=== PATIENT | male | born 1990 | race Caucasian/White ===

== ENCOUNTER 2016-08-30 16:27 | Emergency (ER) | payer MEDICAID, OTHER ==
[2016-08-30 17:05] VITALS: BP 126/72
--- NOTE | 2016-08-30 17:17 | UC ---
Throat Pain/Nasal Hermilo HPI - HPI Summary HPI Summary: complain to sore throat that started 3 days ago nasal congestion for approx 2 days today throat is extremely sore denies fever and chills and cough gargling with salt water without relief not taking any medications for pain 1 episode of diarrhea this morning - denies abdominal pain, N/V/D at this time - History of Current Complaint Chief Complaint: UCGeneralIllness Stated Complaint: SORE THROAT/WHITE SPOTS Time Seen by Provider: 08/30/16 17:07 Hx Obtained From: Patient - Allergies/Home Medications Allergies/Adverse Reactions: Allergies Allergy/AdvReac Type Severity Reaction Status Date / Time No Known Allergies Allergy Verified 11/29/13 13:08 PMH/Surg Hx/FS Hx/Imm Hx Previously Healthy: Yes Endocrine History Of: Denies: Diabetes, Thyroid Disease Cardiovascular History Of: Denies: Cardiac Disorders, Hypertension, Pacemaker/ICD Respiratory History Of: Denies: COPD, Asthma GI/ History Of: Denies: Ulcer - Surgical History Surgical History: Yes Surgery Procedure, Year, and Place: 2010 RIGHT KNEE RECONSTRUCTION [place]; Left knee reconstruction October 2013 - Family History Known Family History: Negative: Cardiac Disease, Hypertension, Diabetes - Social History Occupation: Employed Full-time Lives: With Family Alcohol Use: Occasionally Alcohol Amount: 4 SIX PACKS/WEEK Substance Use Type: None Smoking Status (MU): Never Smoked Tobacco Type: Smokeless Tobacco Amount Used/How Often: NO SMOKING, CHEWS Have You Smoked in the Last Year: No Review of Systems Constitutional: Negative Skin: Negative Eyes: Negative ENT: Sore Throat, Nasal Discharge Respiratory: Negative Cardiovascular: Negative Gastrointestinal: Diarrhea Motor: Negative Neurovascular: Negative Musculoskeletal: Negative Neurological: Negative Psychological: Negative All Other Systems Reviewed And Are Negative: Yes Physical Exam Triage Information Reviewed: Yes Appearance: No Pain Distress, Well-Nourished, Ill-Appearing, Obese Vital Signs: Initial Vital Signs Temp 99.0 F 08/30/16 16:58 Pulse 93 08/30/16 16:58 Resp 16 08/30/16 16:58 BP 126/72 08/30/16 16:58 Pulse Ox 100 08/30/16 16:58 Vital Signs Reviewed: Yes Eyes: Positive: Conjunctiva Clear ENT: Positive: Nasal congestion, TMs normal, Tonsillar swelling, Tonsillar exudate. Negative: TM bulging, TM red Neck: Positive: No Lymphadenopathy Respiratory: Positive: Lungs clear, Normal breath sounds, No respiratory distress Cardiovascular: Positive: RRR, No Murmur, Pulses Normal Abdomen Description: Positive: Nontender, Soft Bowel Sounds: Positive: Present Musculoskeletal: Positive: No Edema Neurological: Positive: Alert Psychological Exam: Normal Skin Exam: Normal Throat Pain/Nasal Course/Dx - Differential Dx/Diagnosis Differential Diagnosis/HQI/PQRI: Mononucleosis, Pharyngitis, Tonsillitis Provider Diagnoses: strep throat Discharge - Discharge Plan Condition: Stable Disposition: HOME Prescriptions: Penicillin VK TAB* [Penicillin Vk Tab*] 500 mg PO BID #20 tab Patient Education Materials: Tonsillitis (ED), Strep Throat (ED) Referrals: No Primary Care Phys,NOPCP [Primary Care Provider] - [facility] [place] PHYSICIAN REFERRAL [Outside] Additional Instructions: STREPTOCOCCAL PHARYNGITIS (Strep Throat) What is Strep Throat? Strep throat is an infection of the throat and/or tonsils caused by Streptococcus bacteria. Strep throat is contagious and can be passed from one person to another through coughing and sneezing. Infections that are caused by bacteria require antibiotics to be cured. You remain contagious until you have taken antibiotics for at least 24 hours. Symptoms Might Include: Pain in the throat area Swelling of the glands in the neck Pain with swallowing Fever Fatigue Ear pain White spots on your tonsils (caused by pus) Treatment Recommendations: An antibiotic may have been prescribed. The antibiotic should be taken until it is completely gone, even if you feel better. If you stop the antibiotic early , you may not cure the infection completely. Gargle with warm saltwater (place 1 tsp. of salt in a large glass of warm water ) every 3 to 4 hours. Take acetaminophen (Tylenol, Tempra) for pain and fever. Drink lots of fluids. Do not smoke. Use throat lozenges (Cepostat, [place], etc.) or suck on hard candy for temporary relief of the pain of swallowing. Dispose of used tissues immediately. Cover your mouth when coughing or sneezing. Wash hands frequently. Call Your Doctor or Return Here IF: Your symptoms do not improve within 2 days or you become worse. You have a fever over 101.0 F orally. You are unable to swallow liquids or saliva. You are drooling. You develop trouble breathing. You develop a rash. You develop a stiff neck. You develop pain in your chest. You develop any symptoms that are new or that concern you
[2016-08-30] MEDS ORDERED: Ibuprofen TAB* 400 MG PO ONE (17:24)
== END 2016-08-30 17:40 | disposition home or self-care (01) ==
LOC: UCCORT 16:27
DX: J02.0 Streptococcal pharyngitis (principal)
CPT/HCPCS: 87651; 99212; A9270-GY; G0463

== ENCOUNTER 2016-09-01 08:53 | Emergency (ER) | payer MEDICAID, OTHER ==
--- NOTE | 2016-09-01 09:26 | RAD ---
HISTORY: Hemoptysis COMPARISONS: None VIEWS: 2: Frontal dual-energy and lateral views of the chest. The right costophrenic angle is partially cut off. FINDINGS: CARDIOMEDIASTINAL SILHOUETTE: The cardiomediastinal silhouette is normal. MONIE: The monie are normal. PLEURA: The costophrenic angles are sharp. No pleural abnormalities are noted. LUNG PARENCHYMA: The lungs are clear. ABDOMEN: The upper abdomen is clear. There is no subphrenic gas. BONES AND SOFT TISSUES: No bone or soft tissue abnormalities are noted. OTHER: None. IMPRESSION: NO ACTIVE CARDIOPULMONARY DISEASE.
[2016-09-01 09:37] VITALS: BP 124/73
--- NOTE | 2016-09-01 09:55 | UC ---
Respiratory Complaint HPI - HPI Summary HPI Summary: coughing up clotted blood. Occurred 3 times. On PCN for strep throat for 2d, was told his throat looked "horrible" 2d ago when diagnosis was made. Mild cough. No fever. Non-smoker. Feels much better since starting the antibiotic - History of Current Complaint Chief Complaint: UCRespiratory Stated Complaint: COUGHING UP BLOOD Time Seen by Provider: 09/01/16 09:15 Hx Obtained From: Patient Onset/Duration: Gradual Onset, Lasting Days - 4 Timing: Constant Severity Initially: Moderate Severity Currently: Mild Character: Sputum Description: - blood-streaked, coughed up clots 3 times Associated Signs And Symptoms: Positive: URI, Nasal Congestion, Hoarseness. Negative: Fever, Chills, Wheezing - Risk Factors Pulmonary Embolism Risk Factors: Negative Cardiac Risk Factors: Negative Pseudomonas Risk Factors: Negative Tuberculosis Risk Factors: Negative - Allergies/Home Medications Allergies/Adverse Reactions: Allergies Allergy/AdvReac Type Severity Reaction Status Date / Time No Known Allergies Allergy Verified 09/01/16 09:07 PMH/Surg Hx/FS Hx/Imm Hx Previously Healthy: Yes Endocrine History Of: Denies: Diabetes, Thyroid Disease Cardiovascular History Of: Denies: Cardiac Disorders, Hypertension, Pacemaker/ICD Respiratory History Of: Denies: COPD, Asthma GI/ History Of: Denies: Ulcer - Surgical History Surgical History: Yes Surgery Procedure, Year, and Place: 2010 RIGHT KNEE RECONSTRUCTION [place]; Left knee reconstruction October 2013 - Family History Known Family History: Negative: Cardiac Disease, Hypertension, Diabetes - Social History Occupation: Employed Full-time - lumber Lives: With Family Alcohol Use: Occasionally Alcohol Amount: 4 SIX PACKS/WEEK Substance Use Type: None Smoking Status (MU): Smoker, Current Status Unknown Type: Smokeless Tobacco Amount Used/How Often: 1 can weekly Have You Smoked in the Last Year: No Review of Systems Constitutional: Negative Skin: Negative Eyes: Negative ENT: Sore Throat Respiratory: Cough Cardiovascular: Negative Gastrointestinal: Negative Genitourinary: Negative Motor: Negative Neurovascular: Negative Musculoskeletal: Negative Neurological: Negative Psychological: Negative All Other Systems Reviewed And Are Negative: Yes Physical Exam Triage Information Reviewed: Yes Appearance: Well-Appearing, No Pain Distress, Well-Nourished Vital Signs: Initial Vital Signs Temp 97.9 F 09/01/16 09:08 Pulse 83 09/01/16 09:08 Resp 16 01/09/17 09:08 BP 124/73 09/01/16 09:08 Pulse Ox 100 09/01/16 09:08 Vital Signs Reviewed: Yes Eye Exam: Normal ENT: Positive: Hearing grossly normal, Pharyngeal erythema, TMs normal, Tonsillar swelling, Tonsillar exudate. Negative: Nasal congestion, Nasal drainage, Trismus, Muffled/hoarse voice Neck exam: Normal Respiratory Exam: Normal Respiratory: Positive: Lungs clear, Normal breath sounds Cardiovascular Exam: Normal Musculoskeletal Exam: Normal Neurological Exam: Normal Psychological Exam: Normal Skin Exam: Normal UC Diagnostic Evaluation - Laboratory O2 Sat by Pulse Oximetry: 100 Respiratory Course/Dx - Differential Dx/Diagnosis Differential Diagnosis/HQI/PQRI: Bronchitis, Lower Resp Infection Provider Diagnoses: pharyngitis Discharge - Discharge Plan Condition: Stable Disposition: HOME Patient Education Materials: Pharyngitis (ED) Forms: *Work Release Referrals: No Primary Care Phys,NOPCP [Primary Care Provider] - Additional Instructions: The blood you are coughing up is coming from your infected tonsils and not from your lung.
== END 2016-09-01 10:11 | disposition home or self-care (01) ==
LOC: UCCORT 08:53
DX: J02.9 Acute pharyngitis, unspecified (principal)
CPT/HCPCS: 71020; 99211; G0463

== ENCOUNTER 2017-07-15 10:07 | Emergency (ER) | payer OTHER ==
[2017-07-15 10:39] VITALS: BP 126/74
--- NOTE | 2017-07-15 11:11 | UC ---
Throat Pain/Nasal Hermilo HPI - HPI Summary HPI Summary: Congestion for about 6 days. Not improving. NO fever or chills. Mild cough. - History of Current Complaint Chief Complaint: UCRespiratory Stated Complaint: SINUS COMPLAINT Time Seen by Provider: 07/15/17 10:59 Hx Obtained From: Patient Onset/Duration: Gradual Onset, Lasting Days Severity: Moderate Cough: Nonproductive Associated Signs & Symptoms: Positive: Sinus Discomfort, Nasal Discharge. Negative: Wheezing, Hoarseness, Fever, Vomiting, Rash - Allergies/Home Medications Allergies/Adverse Reactions: Allergies Allergy/AdvReac Type Severity Reaction Status Date / Time No Known Allergies Allergy Verified 07/15/17 10:32 PMH/Surg Hx/FS Hx/Imm Hx Previously Healthy: Yes - Surgical History Surgical History: Yes Surgery Procedure, Year, and Place: 2010 RIGHT KNEE RECONSTRUCTION [place]; Left knee reconstruction October 2013 - Family History Known Family History: Negative: Cardiac Disease, Hypertension, Diabetes - Social History Lives: With Family Alcohol Use: Occasionally Alcohol Amount: 4 SIX PACKS/WEEK Substance Use Type: None Smoking Status (MU): Former Smoker Type: Smokeless Tobacco Amount Used/How Often: NO SMOKING, CHEWS Have You Smoked in the Last Year: No When Did the Patient Quit Smoking/Using Tobacco: AGE 18 QUIT - Immunization History Most Recent Influenza Vaccination: DOES NOT TAKE Review of Systems ENT: Sinus Congestion All Other Systems Reviewed And Are Negative: Yes Physical Exam Triage Information Reviewed: Yes Appearance: Well-Appearing, No Pain Distress, Well-Nourished Vital Signs: Initial Vital Signs Temp 97.7 F 07/15/17 10:33 Pulse 74 07/15/17 10:33 Resp 18 07/15/17 10:33 BP 126/74 07/15/17 10:33 Pulse Ox 100 07/15/17 10:33 Vital Signs Reviewed: Yes ENT: Positive: Nasal congestion, TMs normal. Negative: Tonsillar swelling, Tonsillar exudate, Trismus, Muffled voice, Hoarse voice, Dental tenderness, Sinus tenderness, Uvula midline Neck: Positive: Supple, Nontender, No Lymphadenopathy Respiratory: Positive: Chest non-tender, Lungs clear, Normal breath sounds, No respiratory distress, No accessory muscle use. Negative: Respiratory distress, Decreased breath sounds, Accessory muscle use, Crackles, Rhonchi Cardiovascular: Positive: RRR, No Murmur, Pulses Normal, Brisk Capillary Refill Abdomen Description: Negative: Distended, Guarding Musculoskeletal: Positive: ROM Intact Neurological: Positive: Alert, Muscle Tone Normal, Fatigued Skin: Negative: rashes Throat Pain/Nasal Course/Dx - Course Assessment/Plan: decongestants described in detail. He will start that and then if not improved start amoxacillin on day 10. - Differential Dx/Diagnosis Provider Diagnoses: uri Discharge - Discharge Plan Condition: Good Disposition: HOME Prescriptions: Amoxicillin PO (*) [Amoxicillin 500 MG CAP*] 500 mg PO TID #30 cap Patient Education Materials: Upper Respiratory Infection (ED) Referrals: No Primary Care Phys,NOPCP [Primary Care Provider] - If Needed Additional Instructions: Try decongestants for next few days and then start the antibiotic if symptoms get worse or if you are not better by day 10.
== END 2017-07-15 11:12 | disposition home or self-care (01) ==
LOC: UCCORT 10:07
DX: J06.9 Acute upper respiratory infection, unspecified (principal)
CPT/HCPCS: 99212; G0463

== ENCOUNTER 2017-12-07 15:15 | Emergency (ER) | payer SELFPAY ==
[2017-12-07 15:25] VITALS: BP 144/78
--- NOTE | 2017-12-07 15:51 | UC ---
Laceration HPI - HPI Summary HPI Summary: While cutting rubber tubing at home, pt accidentally cut lateral aspect of L index finger with "new, very sharp knife." States he was cutting with firm pressure, using body weight. Last tdap 1 year ago, no immune suppression. Active bleeding. - History Of Current Complaint Chief Complaint: UCLaceration Stated Complaint: FINGER LACERATION Time Seen by Provider: 12/07/17 15:30 Hx Obtained From: Patient Laceration Location: Finger Mechanism Of Injury: Sharp Trauma Onset/Duration: Sudden Onset Severity: Moderate Pain Intensity: 5 Aggravating Factors: Nothing - Allergies/Home Medications Allergies/Adverse Reactions: Allergies Allergy/AdvReac Type Severity Reaction Status Date / Time No Known Allergies Allergy Verified 12/07/17 15:25 Home Medications: Home Medications NK [No Home Medications Reported] 12/07/17 [History Confirmed 12/07/17] PMH/Surg Hx/FS Hx/Imm Hx Previously Healthy: Yes - Surgical History Surgical History: Yes Surgery Procedure, Year, and Place: 2010 RIGHT KNEE RECONSTRUCTION [place]; Left knee reconstruction October 2013 - Family History Known Family History: Negative: Cardiac Disease, Hypertension, Diabetes - Social History Alcohol Use: Occasionally Alcohol Amount: 4 SIX PACKS/WEEK Substance Use Type: None Smoking Status (MU): Heavy Every Day Tobacco Smoker Type: Smokeless Tobacco Amount Used/How Often: NO SMOKING, CHEWS Have You Smoked in the Last Year: No When Did the Patient Quit Smoking/Using Tobacco: AGE 18 QUIT Cessation Counseling: Patient Advised to Stop - Immunization History Most Recent Influenza Vaccination: DOES NOT TAKE Most Recent Tetanus Shot: 2017 Review of Systems Constitutional: Negative Skin: Other - finger laceration Eyes: Negative ENT: Negative Respiratory: Negative Cardiovascular: Negative Gastrointestinal: Negative Genitourinary: Negative Motor: Negative Neurovascular: Negative Musculoskeletal: Negative Neurological: Negative Psychological: Negative Is Patient Immunocompromised?: No All Other Systems Reviewed And Are Negative: Yes Physical Exam Triage Information Reviewed: Yes Appearance: Well-Appearing, Well-Nourished Vital Signs: Initial Vital Signs Temp 98.1 F 12/07/17 15:22 Pulse 103 12/07/17 15:22 Resp 18 12/07/17 15:22 BP 144/78 12/07/17 15:22 Pulse Ox 98 12/07/17 15:22 Vital Signs Reviewed: Yes Eye Exam: Normal Eyes: Positive: Conjunctiva Clear ENT Exam: Normal ENT: Positive: Normal ENT inspection, Hearing grossly normal, Pharynx normal, TMs normal Neck exam: Normal Neck: Positive: Supple, Nontender, No Lymphadenopathy Respiratory Exam: Normal Respiratory: Positive: Chest non-tender, Lungs clear, Normal breath sounds, No respiratory distress, No accessory muscle use Cardiovascular Exam: Normal Cardiovascular: Positive: RRR, No Murmur Musculoskeletal Exam: Other - Full flexor and extensor strength and ROM in L 2nd finger at PIP and DIP Musculoskeletal: Positive: Strength Intact, ROM Intact Laceration Repair - Laceration Repair 1 Description: Linear Laceration Size After Repair: Length (cm) - 2, Width (mm) - 0, Depth (mm) - 0 Modified For Repair: No Type Injection: Digital Anesthesia Used: 2.0% Lido - 4mL Cleansing Completed Via Routine Prep: Yes Irrigation With Pressure Irrigation Device: Yes Closure Material: Sutures Closure Method: Single Layer Suture Of: Skin Suture Type: Nylon - #5 Diagnostics - Radiology No standard instances Xray Interpretation: Positive (See Comments) - Soft tissue injury, old FB not near laceration Radiology Interpretation Completed By: Radiologist Laceration Course/Dx - Differential Dx - Laceration/Wound Provider Diagnoses: L index finger laceration repair Discharge - Sign-Out/Discharge Documenting (check all that apply): Discharge - Discharge Plan Condition: Stable Disposition: HOME Patient Education Materials: Finger Laceration (ED) Referrals: No Primary Care Phys,NOPCP [Primary Care Provider] - Additional Instructions: Normal handwashing and showering is fine -- avoid swimming or long soaks. Come back in 8-9 days for suture removal. Come back sooner if you develop increasing redness, pain, or drainage. - Billing Disposition and Condition Condition: STABLE Disposition: HOME
[2017-12-07] MEDS ORDERED: Acetaminophen TAB* 325 MG PO ONE (15:58)
[2017-12-07] MEDS ORDERED: Lidocaine 2% PF * 5 ML VIAL INJ ONE (16:06)
[2017-12-07] MEDS ORDERED: Lidocaine 2% PF * 5 ML VIAL ONE (16:07)
--- NOTE | 2017-12-07 16:08 | RAD ---
HISTORY: Left second digit injury, laceration, history of penetrating trauma to the hand, known COMPARISONS: None VIEWS: 3, Frontal, lateral, and oblique views of the second digit of the left hand FINDINGS: BONE DENSITY: Normal. BONES: There is no displaced fracture. JOINTS: There is no arthropathy. ALIGNMENT: There is no dislocation. SOFT TISSUES: There is soft tissue irregularity consistent with history of laceration along the radial aspect of the second digit at the DIP joint. OTHER FINDINGS: There is a rounded radiopaque foreign body along the volar aspect of the third MCP joint consistent with the history of previous penetrating trauma IMPRESSION: 1. NO ACUTE OSSEOUS INJURY. 2. SOFT TISSUE REGULAR THE LUNG THAT RADIAL ASPECT OF THE SECOND DIGIT AT THE DIP JOINT CONSISTENT WITH THE HISTORY OF LACERATION. 3. RADIOPAQUE FOREIGN BODY ALONG THE VOLAR ASPECT OF THE THIRD MCP JOINT CONSISTENT WITH THE HISTORY OF PENETRATING TRAUMA. 4. IF SYMPTOMS PERSIST, RECOMMEND REPEAT IMAGING.
== END 2017-12-07 16:46 | disposition home or self-care (01) ==
LOC: UCEAST 15:15
DX: S61.211A Laceration without foreign body of left index finger without damage to nail, initial encounter (principal); W26.0XXA Contact with knife, initial encounter; Y92.9 Unspecified place or not applicable; F17.210 Nicotine dependence, cigarettes, uncomplicated
CPT/HCPCS: 12001; 73140; 99211; A9270-GY; G0463